=== PATIENT | female | born 1990 | race Caucasian/White ===

== ENCOUNTER 2021-03-24 02:00 | Emergency (ER) | payer SELFPAY ==
[2021-03-24 02:02] VITALS: BP 119/71; Wt 65.9 kg
== END 2021-03-24 02:48 | disposition left against medical advice (07) ==
LOC: D.ER 02:00
DX: F10.129 Alcohol abuse with intoxication, unspecified (principal); Y90.9 Presence of alcohol in blood, level not specified; R47.81 Slurred speech